=== PATIENT | female | born 1960 | race Asian ===

== ENCOUNTER 2023-10-14 12:14 | Outpatient (CLI) | payer MEDICARE | END 2023-10-14 23:59 | disposition home or self-care (01) | LOC: LAB 12:14 | PROVIDERS: ATTEND Internal Medicine | DX: Z00.00 Encounter for general adult medical examination without abnormal findings (principal) ==

== ENCOUNTER 2023-10-20 03:38 | Outpatient (CLI) | payer MEDICARE ==
[~2023-10-20] VITALS: Ht 172.7 cm; Wt 72.6 kg
[2023-10-20] MEDS ORDERED: CEFAZOLIN 1 G in IV DEXTROSE 5% 50 ML IV SCH (04:00)
== END 2023-10-20 09:27 | disposition home or self-care (01) ==
LOC: LAB 03:38
PROVIDERS: ATTEND Internal Medicine
DX: E78.00 Pure hypercholesterolemia, unspecified (principal); I10 Essential (primary) hypertension
CPT/HCPCS: 70551; 72141; 93005; J0690